=== PATIENT | female | born 1940 | race Asian ===

== ENCOUNTER 2021-12-14 15:57 | Emergency (ER) | payer OTHER, MEDICARE ==
[2021-12-14] MEDS ORDERED: Lidocaine 2% 20 ml MDV ONE (16:34)
[2021-12-14] MEDS ORDERED: Boostrix 0.5 ML (Tdap) VIAL ONE (16:34)
[2021-12-14] MEDS ORDERED: Bacitracin 1 PK ONE (16:34)
[2021-12-14] MEDS ORDERED: Sodium Chloride 0.9% 100 ML ONE (17:28)
[2021-12-14] MEDS ORDERED: CEFAZOLIN 1 GM VIAL ONE (17:28)
[2021-12-14] MEDS ORDERED: Morphine 4 MG/ML VIAL ONE (18:05)
[2021-12-14 18:13] LABS: #Eosinphils 0.1 thou/uL (0.0-0.7); #Lymphocytes 1.2 thou/uL (1.20-3.40); #Monocytes 0.5 thou/uL (0.11-0.59); #Neutrophils 5.1 thou/uL (1.40-6.50); %Basophils 0.5 % (0.0-1.0); %Eosinophils 1.3 % (0.0-10.0); %Monocytes 7.8 % (0.0-10.0); %Neutrophils 73.4 % (42.0-75.0); Hemoglobin 9.9 g/dL (12.0-16.0); Mean Corpuscular HGB CONC 30.3 g/dL (32.0-36.0); Mean Corpuscular Hemoglobin 29.2 pg (27.0-31.0); Mean Corpuscular Volume 96.2 fL (78.0-98.0); Mean Platelet Volume 9.7 fL (7.4-10.4); Platelet Count 211 thou/uL (130-400); RBC Distribution Width 12.3 % (11.5-14.5); White Blood Cell (WBC) Count 6.9 thou/uL (4.8-10.8)
[2021-12-14 18:14] LABS: INR-International Normal Ratio 0.9; PTT 30.3 sec (22.9-36.1); Prothrombin Time 12.7 sec (12.0-14.7)
[2021-12-14 18:23] LABS: ALT (SGPT) 17 U/L (8-55); AST (SGOT) 27 U/L (5-34); Albumin 4.3 g/dL (3.4-4.8); Alkaline Phosphatase 68 U/L (40-110); Anion Gap 18 mmol/L (10-20); BUN (Urea Nitrogen) 27 mg/dL (9.8-20.1); Bilirubin, Total 0.4 mg/dL (0.2-1.2); Calc. Creatinine Clearance 0 mL/min (70-130); Calcium 9.4 mg/dL (7.8-10.44); Carbon Dioxide 20 mmol/L (23-31); Chloride 105 mmol/L (98-107); Globulin 3.1 g/dL (2.4-3.5); Glucose 97 mg/dL (83-110); Potassium 4.7 mmol/L (3.5-5.1); Protein, Total 7.4 g/dL (5.8-8.1); Sodium 138 mmol/L (136-145)
== END 2021-12-14 18:45 | disposition short-term general hospital (02) ==
LOC: MADERS 15:57 → EDBD 15:57 → MADERS 18:45
DX: S82.201B Unspecified fracture of shaft of right tibia, initial encounter for open fracture type I or II (principal); S82.831A Other fracture of upper and lower end of right fibula, initial encounter for closed fracture; I10 Essential (primary) hypertension; E78.00 Pure hypercholesterolemia, unspecified; V59.59XA Passenger in pick-up truck or van injured in collision with other motor vehicles in traffic accident, initial encounter; W22.10XA Striking against or struck by unspecified automobile airbag, initial encounter; Z23 Encounter for immunization
CPT/HCPCS: 70450; 71045; 72125; 73590; 73610; 80053; 85025; 85610; 85730; 90715; G0390; 29505; 90471; 96365; 96375; J0690; J2270; J3490